=== PATIENT | male | born 1980 | race Two or more races ===

== ENCOUNTER 2017-08-21 10:20 | Inpatient (IN) | payer OTHER ==
[~2017-08-21] VITALS: Ht 162.6 cm; Wt 79.4 kg
--- NOTE | 2017-08-21 10:41 | NUR ---
nausea and vomiting x 4 days, denies diarrhea or abdominal pain chills and body aches x 2 days
[2017-08-21 11:09] LABS: APPEARANCE,URINE Slightly Cloudy (CLEAR); BILIRUBIN,URINE Negative (NEGATIVE); BLOOD, URINE Negative Ery/uL (NEGATIVE); COLOR,URINE Yellow (YELLOW); KETONES,URINE 15 (NEGATIVE); LEUKOCYTE ESTERASE ,URINE Negative (NEGATIVE); NITRITE, URINE Negative (NEGATIVE); PH,URINE 5.5 (5.0-8.0); PROTEIN,URINE 100 mg/dl (NEGATIVE); UGLUCOSE >=1000 mg/dL (NEGATIVE); UROBILINOGEN,URINE 0.2 EU/dL (0.2)
[2017-08-21] MEDS ORDERED: MORPHINE SULFATE INJ 4 MG/ML DISP.SYRIN ONE (11:14)
[2017-08-21] MEDS ORDERED: ONDANSETRON HCL/PF 4 MG/2 ML VIAL ONE (11:14)
[2017-08-21] MEDS ORDERED: ACETAMINOPHEN 325 MG TABLET ONE (11:15)
[2017-08-21 11:18] LABS: BASOPHILS # (AUTO) 0.1 /CMM (0.0-0.2); BASOPHILS % (AUTO) 0.6 % (0.0-2.0); EOSINOPHILS % (AUTO) 0.2 % (0.0-6.0); HEMATOCRIT 36 % (39-51); HEMOGLOBIN 12.3 g/dL (13.5-17.5); LYMPHOCYTES # (AUTO) 0.5 /CMM (0.8-4.8); LYMPHOCYTES % (AUTO) 3.1 % (20.0-44.0); MEAN CORPUSCULAR HGB CONC 34 g/dl (31.0-36.0); MEAN CORPUSCULAR VOLUME 85 fL (80-96); MONOCYTES # (AUTO) 0.9 /CMM (0.1-1.30); MONOCYTES % (AUTO) 5.7 % (2.0-12.0); NEUTROPHILS # (AUTO) 14.9 /CMM (1.8-8.9); NEUTROPHILS % (AUTO) 90.4 % (43.0-81.0); PLATELET COUNT (AUTO) 224 /CMM (150-450); RDW COEFFICIENT OF VARIATION 12.2 (11.5-15.0); RED BLOOD CELL COUNT(AUTO) 4.23 MIL/uL (4.5-6.0); WHITE BLOOD COUNT (AUTO) 16.4 K/uL (4.3-11.0)
[2017-08-21 11:22] LABS: BACTERIA,URINE None seen /HPF (None Seen); RBC,URINE 0-3 /HPF (0-2); SQUAMOUS EPITHELIAL CELL,UR Few /HPF (None Seen)
[2017-08-21 11:28] LABS: CALCIUM, SERUM 8.7 mg/dL (8.5-10.1); CREATININE 0.9 mg/dL (0.6-1.3); POTASSIUM 4.2 mmol/L (3.5-5.1)
--- NOTE | 2017-08-21 11:28 | NUR ---
PT TAKEN TO CT
[2017-08-21] MEDS ORDERED: IV NS 0.9% 1,000 ML BAG IV ONE (11:30)
[2017-08-21] MEDS ORDERED: ACETAMINOPHEN 325 MG TABLET PO ONE (11:30)
[2017-08-21] MEDS ORDERED: MORPHINE SULFATE INJ 2 MG/ML DISP.SYRIN IV ONE (11:30)
[2017-08-21] MEDS ORDERED: ONDANSETRON HCL/PF 4 MG/2 ML VIAL IVP ONE (11:30)
[2017-08-21 11:39] LABS: ALBUMIN 2.9 g/dL (3.4-5.0); BILIRUBIN,DIRECT 0.2 mg/dL (0.0-0.2); BILIRUBIN,TOTAL 0.8 mg/dL (0.2-1.0); TOTAL PROTEIN, SERUM 8.3 g/dL (6.4-8.2)
[2017-08-21] MEDS ORDERED: CT SWABBABLE VALVE TRANS SET 1 EA INFUS.SET MC ONE (11:46)
[2017-08-21] MEDS ORDERED: IOHEXOL-300 100 ML VIAL IV ONE (11:46)
[2017-08-21] MEDS ORDERED: IV NS 0.9% 250 ML IV ONE (11:47)
[2017-08-21] MEDS ORDERED: METF-440 PO (12:17)
[2017-08-21] MEDS ORDERED: PIPERACILLIN /TAZOBACTAM 3.375 G in IV D5W 50 ML IV ONE (13:30)
[2017-08-21] MEDS ORDERED: VANCOMYCIN 1 GM in IV D5W 250 ML IV ONE (13:30)
--- NOTE | 2017-08-21 13:45 | NUR ---
CALLED FOR FOOD TRAY
--- NOTE | 2017-08-21 14:00 | NUR ---
CORE DRILLER HELPER AT BEDSIDE
[2017-08-21 14:09] LABS: INR 0.88 (0.85-1.15)
--- NOTE | 2017-08-21 15:21 | NUR ---
GAVE REPORT TO CASH STAFFORD ADMITTING
[2017-08-21] MEDS ORDERED: ACETAMINOPHEN 325 MG TABLET PO PRN (16:00)
[2017-08-21] MEDS ORDERED: ZOLPIDEM TARTRATE 5 MG TABLET PO PRN (16:00)
[2017-08-21] MEDS ORDERED: HYDROCODONE/APAP 5/325MG 1 EACH TABLET PO PRN (16:00)
[2017-08-21] MEDS ORDERED: ONDANSETRON HCL/PF 4 MG/2 ML VIAL IVP PRN (16:00)
[2017-08-21] MEDS ORDERED: Z GUARD REMEDY 2 OZ OINT TP PRN (16:00)
[2017-08-21] MEDS ORDERED: MAGNESIUM HYDROXIDE 30 ML UDC PO PRN (16:00)
[2017-08-21] MEDS ORDERED: MAG HYDROX/AL HYDROX/SIMETH 30 ML UDC PO PRN (16:00)
[2017-08-21 16:15] VITALS: BP 116/69
[2017-08-21] MEDS ORDERED: FEE PK DOSING 1 MIN EA MC ONE (16:22)
[2017-08-21] MEDS ORDERED: DEXTROSE 50%-WATER 50 ML DISP.SYRIN IV PRN ×2 (16:30→18:00)
[2017-08-21] MEDS ORDERED: *INSULIN REGULAR(HUMULIN R)HUM 100 UNIT/ML VIAL SQ PRN (16:30)
[2017-08-21] MEDS ORDERED: INSULIN REGULAR, HUMAN 100 UNIT/ML 3 ML VIAL SQ PRN (16:30)
[2017-08-21] MEDS ORDERED: VANCOMYCIN 1 GM in IV D5W 250 ML IV SCH (16:30)
--- NOTE | 2017-08-21 16:30 | NUR ---
M/S RN - Admission Admitted pt from ER via [facility] with the diagnosis of Diabetic right foot ulcer under the care of Dr. Schwab. Pt awake, A/O x 4, denies pain, no evidence of resp. distress. Heplock on the RAC is patent, intact, with no complications. Skin is intact except for right big toe and 5th toe ulcer, right foot redness and swelling. Pt independent with ADL's and bed mobility. All belongings verified and pt refused valuables to be placed in the safe. Pt made aware that hospital will not be responsible for any missing items. Pt oriented to the unit and use of call light. All needs anticipated and met. Pt educated on the treatment plan. Admission orders noted and implemented. Will continue to monitor closely. Addendum: 08/21/17 at 1813 by CASH RICE RN Photo taken on right posterior 5th toe and big toe wound. Wound nurse triggered. Initial wound treatment done.
[2017-08-21] MEDS: ENOXAPARIN SODIUM 40 MG/0.4 ML DISP.SYRIN SQ SCH (17:09)
[2017-08-21] MEDS ORDERED: BLOOD SUGAR DIAGNOSTIC 1 EACH STRIP VI SCH (17:30)
--- NOTE | 2017-08-21 17:52 | NUR ---
M/S RN - Notes 17:32 - Accu-check done noted BG= 404 mg/dL, administered 15 units of regular insulin per sliding scale coverage. 17:36 - Relayed to Dr. Schwab critical value result of BG= 404 mg/dL. Awaiting for response. 17:45 - Dr. Schwab with order to give Lantus 15 units SQ HS, perform Accu-check Q4HR, and continue moderate sliding scale. Orders noted and carried out.
--- NOTE | 2017-08-21 18:10 | NUR ---
M/S RN - End of shift notes Patient remain afebrile, denies pain, tolerating room air, no acute distress, diabetic education given and he verbalized full understanding. Patient's insurance called and wanted pt to be transferred to [facility] ([facility] Relayed information to case management. All needs attended and met. Patient updated on treatment plan. Will continue with current medical management.
--- NOTE | 2017-08-21 19:15 | NUR ---
MS RN NOTES RECEIVED PT IN BED, AWAKE, A/O X 4, VERBALLY RESPONSIVE. NO DISTRESS, NO SOB NOTED. RESPIRATION IS EVEN AND UNLABORED. DENIES ANY PAIN OR DISCOMFORT AT THIS TIME. NO S/S OF HYPO/ HYPERGLYCEMIA NOTED. IV SITE ON RAC INTACT AND PATENT, NO S/S OF INFILTRATION NOTED. DENIES ANY PAIN OR DISCOMFORT AT THIS TIME. ALL NEEDS ATTENDED AND MET. PT COMFORTABLE VERBALIZED. CALL LIGHT WITHIN REACH. WILL CONTINUE TO MONITOR.
[2017-08-21 20:00] VITALS: BP 109/64
[2017-08-21] MEDS: PIPERACILLIN /TAZOBACTAM 3.375 G in IV D5W 50 ML IV SCH (20:17)
[2017-08-21] MEDS ORDERED: BLOOD SUGAR DIAGNOSTIC 1 EACH STRIP IN SCH (21:00)
[2017-08-21] MEDS: BLOOD SUGAR DIAGNOSTIC 1 EACH STRIP IN SCH (21:27)
[2017-08-21] MEDS: INSULIN GLARGINE, 100 UNIT/ML CARTRIDGE SQ SCH (21:41)
--- NOTE | 2017-08-21 21:43 | NUR ---
pt's bs : 68 at this time, no insulin given per insulin ss. pt with no s/s of hypoglycemia noted, remains alert and oriented x 4 . verbally responsive. pt eating jello at this time and per pt he'll drink orange juice. pt aLso has an order for lantus 15 units, held due to bs : 68 at this time. will cont to monitor
[2017-08-21] MEDS ORDERED: VANCOMYCIN 1 GM VIAL ONE (22:35)
[2017-08-21] MEDS: VANCOMYCIN 1 GM in IV NS 0.9% 250 ML IV SCH (22:57)
[2017-08-22] MEDS: BLOOD SUGAR DIAGNOSTIC 1 EACH STRIP IN SCH ×6 (00:39→23:38)
[2017-08-22] MEDS: INSULIN REGULAR, HUMAN 100 UNIT/ML 3 ML VIAL SQ PRN ×5 (00:49→23:36)
[2017-08-22] MEDS: PIPERACILLIN /TAZOBACTAM 3.375 G in IV D5W 50 ML IV SCH ×3 (02:23→13:30)
--- NOTE | 2017-08-22 06:40 | NUR ---
MS RN CLOSING NOTES PT IN BED, AWAKE, A/O X 4, VERBALLY RESPONSIVE. NO DISTRESS, NO SOB NOTED. RESPIRATION IS EVEN AND UNLABORED. DENIES ANY PAIN OR DISCOMFORT AT THIS TIME. NO S/S OF HYPO/ HYPERGLYCEMIA NOTED. IV SITE ON RAC INTACT AND PATENT, NO S/S OF INFILTRATION NOTED. DENIES ANY PAIN OR DISCOMFORT AT THIS TIME. GOOD SKIN CARE RENDERED. ALL DUE MEDS GIVEN. ALL NEEDS ATTENDED AND MET. PT COMFORTABLE VERBALIZED. CALL LIGHT WITHIN REACH. WILL ENDORSE TO NEXT SHIFT ACCORDINGLY FOR EDEL. .
[2017-08-22 06:58] LABS: BASOPHILS % (AUTO) 0.2 % (0.0-2.0); EOSINOPHILS % (AUTO) 0.5 % (0.0-6.0); HEMATOCRIT 32 % (39-51); LYMPHOCYTES # (AUTO) 1.2 /CMM (0.8-4.8); LYMPHOCYTES % (AUTO) 9.7 % (20.0-44.0); MEAN CORPUSCULAR HGB CONC 35 g/dl (31.0-36.0); MEAN CORPUSCULAR VOLUME 85 fL (80-96); MONOCYTES # (AUTO) 0.8 /CMM (0.1-1.30); MONOCYTES % (AUTO) 6.5 % (2.0-12.0); NEUTROPHILS # (AUTO) 10.2 /CMM (1.8-8.9); NEUTROPHILS % (AUTO) 83.1 % (43.0-81.0); PLATELET COUNT (AUTO) 223 /CMM (150-450); RDW COEFFICIENT OF VARIATION 12.7 (11.5-15.0); RED BLOOD CELL COUNT(AUTO) 3.73 MIL/uL (4.5-6.0); WHITE BLOOD COUNT (AUTO) 12.3 K/uL (4.3-11.0)
[2017-08-22 07:13] LABS: CALCIUM, SERUM 8.3 mg/dL (8.5-10.1); CREATININE 0.9 mg/dL (0.6-1.3); MAGNESIUM 2.1 mg/dL (1.8-2.4); PHOSPHORUS 3.2 mg/dL (2.5-4.9); POTASSIUM 3.6 mmol/L (3.5-5.1)
[2017-08-22] MEDS: VANCOMYCIN 1 GM in IV NS 0.9% 250 ML IV SCH ×3 (07:45→23:48)
[2017-08-22 08:00] VITALS: BP 109/64
--- NOTE | 2017-08-22 08:45 | NUR ---
M/S RN - AM assessment Patient awake, A/O x 4, afebrile, denies pain, no evidence of resp. distress. Heplock on the RAC is patent, intact, with no complications. Right foot still noted with swelling and redness, elevated on pillows, right 5th metatarsal and big toe open wound with purulent drainage. DONG Kim (Podiatry) at bedside for consult. Right foot wound specimen sent to lab for culture. Patient currently on Vanco and Zosyn for right foot wound infection. Blood sugar more controlled with current insulin coverage. All needs attended and met. Will continue with current plan of care.
[2017-08-22] MEDS ORDERED: LIDOCAINE 1% INJ 50 ML MDV IJ ONE (10:00)
--- NOTE | 2017-08-22 10:30 | NUR ---
M/S RN - Bedside wound debridement Patient s/p bedside right foot wound debridement performed by Dr. You, procedure tolerated well. Per Md, wound treatment to be done on the right foot q8h. All needs attended and met. Will continue to monitor closely. Possible transfer to [facility] today per pt's insurance.
--- NOTE | 2017-08-22 15:00 | NUR ---
M/S RN - Evan Noted Zosyn in D5W 100 ml instead of 50 ml, notified pharmacy that patient is diabetic and had episodes of uncontrolled blood sugar level. Per pharmacy, they will change it.
[2017-08-22] MEDS ORDERED: PIPERACILLIN /TAZOBACTAM 3.375 G in IV D5W 100 ML IV SCH (15:45)
[2017-08-22 15:47] VITALS: BP 138/75
--- NOTE | 2017-08-22 19:15 | NUR ---
MS RN NOTES RECEIVED PT IN BED, RESTING COMFORTABLY AT THIS TIME,AROUSES EASILY. A/O X 4, VERBALLY RESPONSIVE. NO DISTRESS, NO SOB NOTED. RESPIRATION IS EVEN AND UNLABORED. DENIES ANY PAIN OR DISCOMFORT AT THIS TIME. NO S/S OF HYPO/ HYPERGLYCEMIA NOTED. IV SITE ON RAC INTACT AND PATENT, NO S/S OF INFILTRATION NOTED. DENIES ANY PAIN OR DISCOMFORT AT THIS TIME. DRESSING ON RIGHT FOOT CLEAN AND INTACT , NO S/S OF BLEEDING NOTED. ALL NEEDS ATTENDED AND MET. PT COMFORTABLE VERBALIZED. CALL LIGHT WITHIN REACH. WILL CONTINUE TO MONITOR.
--- NOTE | 2017-08-22 19:15 | NUR ---
M/S RN - End of shift notes No new events seen. Patient endorsed to night RN accordingly.
[2017-08-22 20:00] VITALS: BP 112/62
[2017-08-22] MEDS: PIPERACILLIN /TAZOBACTAM 3.375 G in IV D5W 100 ML IV SCH (20:34)
[2017-08-22] MEDS: INSULIN GLARGINE, 100 UNIT/ML CARTRIDGE SQ SCH (23:37)
[2017-08-22] MEDS: ENOXAPARIN SODIUM 40 MG/0.4 ML DISP.SYRIN SQ SCH (23:38)
[2017-08-23] MEDS: PIPERACILLIN /TAZOBACTAM 3.375 G in IV D5W 100 ML IV SCH ×4 (02:01→19:55)
[2017-08-23] MEDS: BLOOD SUGAR DIAGNOSTIC 1 EACH STRIP IN SCH ×6 (02:46→20:34)
[2017-08-23] MEDS: INSULIN REGULAR, HUMAN 100 UNIT/ML 3 ML VIAL SQ PRN ×5 (02:48→21:39)
--- NOTE | 2017-08-23 06:50 | NUR ---
MS RN NOTES PT IN BED, AWAKE, A/O X 4, VERBALLY RESPONSIVE. NO DISTRESS, NO SOB NOTED. RESPIRATION IS EVEN AND UNLABORED. DENIES ANY PAIN OR DISCOMFORT AT THIS TIME. NO S/S OF HYPO/ HYPERGLYCEMIA NOTED. IV SITE ON RAC INTACT AND PATENT, NO S/S OF INFILTRATION NOTED. DENIES ANY PAIN OR DISCOMFORT AT THIS TIME. DRESSING ON RIGHT FOOT CHANGED ORDERED. ALL DUE MEDS GIVEN. ALL NEEDS ATTENDED AND MET. PT COMFORTABLE VERBALIZED. CALL LIGHT WITHIN REACH. WILL ENDORSE TO NEXT SHIFT FOR EDEL. .
[2017-08-23] MEDS: VANCOMYCIN 1 GM in IV NS 0.9% 250 ML IV SCH ×3 (07:27→22:09)
--- NOTE | 2017-08-23 07:30 | NUR ---
RN MS NOTES PT IN BED, AWAKE, ALERT AND ORIENTED, DENIES PAIN OR ANY DISCOMFORT, BREATHING PATTERN NORMAL, CALL LIGHT WITHIN REACH, IV ATB INFUSING WELL, KEPT COMFORTABLE, NEEDS ATTENDED.
[2017-08-23 08:00] VITALS: BP 118/67
[2017-08-23 09:50] LABS: CALCIUM, SERUM 8.5 mg/dL (8.5-10.1); CREATININE 1.1 mg/dL (0.6-1.3); POTASSIUM 3.9 mmol/L (3.5-5.1)
--- NOTE | 2017-08-23 12:36 | NUR ---
RN MS NOTES PT IN BED, RESTING, DENIES PAIN, NOT IN DISTRESS, CALL LIGHT WITHIN REACH, ABLE TO USE URINAL, KEPT COMFORTABLE.
[2017-08-23 15:47] VITALS: BP 118/73
[2017-08-23] MEDS: LACTOBACILLUS RHAMNOSUS GG 1 EACH CAP.SPRINK PO SCH (17:23)
--- NOTE | 2017-08-23 19:00 | NUR ---
RN MS NOTES PT IN BED, RESTING, NO COMPLAINT OF PAIN, NOT IN DISTRESS, CALL LIGHT WITHIN REACH, SEEN BY DR. STAFFORD TODAY, PM MEDS GIVEN, BLOOD SUGAR CHECKED, INSULIN GIVEN PER SLIDING SCALE ORDERED, ALL NEEDS ATTENDED.
[2017-08-23 20:00] VITALS: BP 123/71
[2017-08-23] MEDS: ENOXAPARIN SODIUM 40 MG/0.4 ML DISP.SYRIN SQ SCH (20:41)
--- NOTE | 2017-08-23 21:20 | NUR ---
PATIENT FEELING NAUSEATED, NO VOMITING NOTED, ONDANSETRON 4 MG IV ADMINISTERED.
[2017-08-23] MEDS: INSULIN GLARGINE, 100 UNIT/ML CARTRIDGE SQ SCH (21:26)
--- NOTE | 2017-08-23 22:06 | NUR ---
2100: Accucheck 219 mg/dl, 6 units Regular insulin sc administered.
[2017-08-24] MEDS: BLOOD SUGAR DIAGNOSTIC 1 EACH STRIP IN SCH ×6 (01:20→21:45)
--- NOTE | 2017-08-24 01:20 | NUR ---
0100: ACCJUCHECK 124 MG/DL, NO INSULIN SS DUE AT THIS TIME.
[2017-08-24] MEDS: PIPERACILLIN /TAZOBACTAM 3.375 G in IV D5W 100 ML IV SCH ×3 (02:37→13:51)
[2017-08-24] MEDS: ONDANSETRON HCL/PF 4 MG/2 ML VIAL IV PRN ×2 (02:38→09:49)
--- NOTE | 2017-08-24 05:28 | NUR ---
ACCUCHECK NOW 207 MG/DL, PATIENT HAD BEEN VOMITING, UNABLE TO TAKE ANYTHING, INSULIN SLIDING SCALE NOT ADMINISTERED FOR NOW. WILL RECHECK BLOOD SUGAR LATER.
[2017-08-24] MEDS: VANCOMYCIN 1 GM in IV NS 0.9% 250 ML IV SCH ×2 (06:05→15:00)
[2017-08-24 06:06] LABS: BASOPHILS % (AUTO) 0.2 % (0.0-2.0); EOSINOPHILS % (AUTO) 1.9 % (0.0-6.0); HEMATOCRIT 36 % (39-51); HEMOGLOBIN 12.3 g/dL (13.5-17.5); LYMPHOCYTES # (AUTO) 1.3 /CMM (0.8-4.8); LYMPHOCYTES % (AUTO) 13.6 % (20.0-44.0); MEAN CORPUSCULAR HGB CONC 34 g/dl (31.0-36.0); MEAN CORPUSCULAR VOLUME 86 fL (80-96); MONOCYTES # (AUTO) 0.6 /CMM (0.1-1.30); MONOCYTES % (AUTO) 5.9 % (2.0-12.0); NEUTROPHILS # (AUTO) 7.4 /CMM (1.8-8.9); NEUTROPHILS % (AUTO) 78.4 % (43.0-81.0); PLATELET COUNT (AUTO) 277 /CMM (150-450); RDW COEFFICIENT OF VARIATION 13.1 (11.5-15.0); WHITE BLOOD COUNT (AUTO) 9.4 K/uL (4.3-11.0)
[2017-08-24 06:28] LABS: CALCIUM, SERUM 8.9 mg/dL (8.5-10.1); CREATININE 1.2 mg/dL (0.6-1.3); MAGNESIUM 2.1 mg/dL (1.8-2.4); PHOSPHORUS 4.6 mg/dL (2.5-4.9); POTASSIUM 4.1 mmol/L (3.5-5.1)
[2017-08-24 08:00] VITALS: BP 137/71
[2017-08-24] MEDS: LACTOBACILLUS RHAMNOSUS GG 1 EACH CAP.SPRINK PO SCH ×2 (08:41→17:36)
--- NOTE | 2017-08-24 08:42 | NUR ---
MS RN NOTES RECEIVED PT IN BED, A/O X 4, VERBALLY RESPONSIVE. RESPIRATION IS EVEN AND UNLABORED, ON ROOM AIR. DENIES ANY PAIN OR DISCOMFORT AT THIS TIME. IV SITE TO RAC INTACT AND PATENT, NO S/S OF INFILTRATION NOTED. DRESSING ON RIGHT FOOT INTACT DRESSED BY PREVIOUS SHIFT. NO S/S OF BLEEDING NOTED. SAFETY MEASURES RENDERED, CALL LIGHT WITHIN REACH. WILL CONTINUE TO MONITOR.
[2017-08-24] MEDS: INSULIN REGULAR, HUMAN 100 UNIT/ML 3 ML VIAL SQ PRN ×4 (09:49→21:49)
--- NOTE | 2017-08-24 11:40 | NUR ---
MS/RN NOTES PATIENT NAUSEATED, VOMITING CLEAR FLUIDS, ONDANSETRON 4 MG IV ADMINISTERED.WILL RE-ASSESS AT SCHEDULED TIME FOR EFFECTIVENESS.
--- NOTE | 2017-08-24 15:56 | NUR ---
MS/RN NOTES 1500 VANCOMYCIN HELD DUE TO VANCO TROUGH 27. PHARMACY AWARE WILL ADJUST DOSE PER PROTOCOL.
[2017-08-24 16:00] VITALS: BP 130/70
--- NOTE | 2017-08-24 16:13 | NUR ---
MS/RN NOTES WOUND TO THE RIGHT LOWER FOOT DRESSED ORDERED, PATIENT TOLERATED WELL. NO S/S OF INFECTION NOTED. WILL CONTINUE TO MONITOR.
--- NOTE | 2017-08-24 17:00 | NUR ---
MS BS NOTE PATIENTS 1700 BS CHECK 141MG/DL, COVERED WITH 2 UNITS OF INSULIN PER PROTOCOL
[2017-08-24] MEDS ORDERED: LACTOBACILLUS RHAMNOSUS GG 1 EACH CAP.SPRINK PO SCH (18:00)
[2017-08-24] MEDS: LEVOFLOXACIN (500MG) 500 MG TABLET PO SCH (18:23)
--- NOTE | 2017-08-24 18:43 | NUR ---
MS/RN NOTES PATIENT RESTING IN BED, ONGOING EMESIS CLEAR FLUIDS, NO SIGNIFICANT CHANGES IN GENERAL CONDITION, VITAL SIGNS REMAIN STABLE, AFEBRILE. ALL DUE MEDICATIONS GIVEN , ALL NEEDS MET AND ATTENDED. GLYCEMIC CONTROL, WOUND CARE DONE ORDERED. IV ANTIBIOTICS INFUSING ORDERED. PATIENT SLEEPING THROUGHOUT SHIFT HOWEVER AROUSABLE TO STIMULI, SAFETY MEASURES RENDERED, CALL LIGHT PLACED WITHIN EASY REACH. WILL ENDORSE CARE TO LICENSED PSYCHIATRIC TECHNICIAN FOR EDEL
--- NOTE | 2017-08-24 19:10 | NUR ---
MS/RN OPENING NOTES PT ASLEEP, AROUSABLE TO NAME/TOUCH. ON ROOM AIR, BREATHING EVEN AND UNLABORED. NO SOB. NO COMPLAINTS OF PAIN. IV TO RAC LEAKING. WILL REINSERT. BED IN LOW/LOCKED POSITION WITH CALL LIGHT IN REACH. SIDE RAILS UPX2. WILL CONTINUE TO MONITOR
[2017-08-24 20:00] VITALS: BP 131/77
[2017-08-24] MEDS: METOCLOPRAMIDE HCL 10 MG/2 ML VIAL IV SCH (20:36)
--- NOTE | 2017-08-24 21:01 | NUR ---
MS/RN NOTES IV TO RIGHT AC LEAKING. INSERTED NEW IV TO RIGHT HAND #22, GOOD BLOOD RETURN. FLUSHES WELL. ADMINISTERED SCHEDULED 1800 REGLAN IV LATE. PER DAY SHIFT RN, PHARMACY LATE TO BRING TO UNIT.
[2017-08-24] MEDS: SULFAMETH/TRIMETH 800/160 MG 1 UDTAB TABLET PO SCH (21:45)
[2017-08-24] MEDS: INSULIN GLARGINE, 100 UNIT/ML CARTRIDGE SQ SCH (21:49)
[2017-08-24] MEDS: ENOXAPARIN SODIUM 40 MG/0.4 ML DISP.SYRIN SQ SCH (21:50)
[2017-08-24] MEDS ORDERED: VANCOMYCIN 1 GM in IV NS 0.9% 250 ML IV SCH (23:00)
[2017-08-25] MEDS: METOCLOPRAMIDE HCL 10 MG/2 ML VIAL IV SCH ×5 (01:36→23:11)
[2017-08-25] MEDS: BLOOD SUGAR DIAGNOSTIC 1 EACH STRIP IN SCH ×6 (01:36→21:30)
[2017-08-25] MEDS: INSULIN REGULAR, HUMAN 100 UNIT/ML 3 ML VIAL SQ PRN ×4 (01:41→21:36)
--- NOTE | 2017-08-25 01:41 | NUR ---
MS/RN NOTES PT FEELING NAUSEATED, ADMINISTERED SCHEDULED REGLAN ORDERED. SNACKS ENCOURAGED TOLERATED, PT ABLE TO CONSUME 1.5 JUICE BOXES SINCE START OF SHIFT, HOWEVER PT REFUSING TO EAT SNACKS NOW. WITH POOR APPETITE. BLOOD GMWWX=[id number]. HELD INSULIN SLIDING SCALE. WILL RECHECK AT 0500.
[2017-08-25 06:55] LABS: CALCIUM, SERUM 8.8 mg/dL (8.5-10.1); CREATININE 1.3 mg/dL (0.6-1.3); POTASSIUM 3.9 mmol/L (3.5-5.1)
--- NOTE | 2017-08-25 07:20 | NUR ---
MS/RN CLOSING NOTES PT ASLEEP, AROUSABLE TO NAME. ON ROOM AIR, BREATHING EVEN AND UNLABORED. NO SOB. NO COMPLAINTS OF PAIN. WITH NO/OFF NAUSEA/VOMITING. TOTAL OF 450ML CLEAR EMESIS NOTED. NO COMPLAINTS OF NAUSEA AT THIS TIME. IV TO RIGHT HAND PATENT AND INTACT. WOUND CARE PROVIDED ORDERED. KEPT PT COMFORTABLE POSSIBLE DURING SHIFT. ALL NEEDS MET. BED IN LOW/LOCKED POSITION WITH CALL LIGHT IN REACH. SIDE RAILS UPX2. ENDORSED TO DAY SHIFT RN EDEL.
--- NOTE | 2017-08-25 07:51 | NUR ---
WOUND CARE CONSULT WOUND CARE RECEIVED CONSULT FOR RIGHT FOOT OPEN WOUND. WOUND CARE WILL DEFER CONSULT AND ALL TREATMENT PLANS TO SURGICAL TEAM THEY ARE CURRENTLY FOLLOWING. PATIENT WITH DAVID AT 22.
--- NOTE | 2017-08-25 07:52 | NUR ---
MS RN: INITIAL NOTE RECEIVED PT A/OX4. NO DISTRESS NOTED. NO SOB NOTED. ON ROOM AIR SATING AT 99%. MS. BRP AND USES URINAL. NO EPISODES OF N/V NOTED. NO PAIN NOTED. ON CCHO DIET. R HAND #22 SL. SITE CLEAR AND PATENT. NO REDNESS OR BLEEDING NOTED. RESTING COMFORTABLY IN BED. CALL LIGHT WITHIN REACH.
[2017-08-25 08:19] VITALS: BP 125/81
[2017-08-25] MEDS: SULFAMETH/TRIMETH 800/160 MG 1 UDTAB TABLET PO SCH ×2 (08:45→21:30)
[2017-08-25] MEDS: LACTOBACILLUS RHAMNOSUS GG 1 EACH CAP.SPRINK PO SCH ×2 (08:45→17:05)
[2017-08-25] MEDS: METFORMIN 500 MG TABLET PO SCH ×2 (08:45→17:04)
[2017-08-25] MEDS ORDERED: INSULIN GLARGINE, 100 UNIT/ML CARTRIDGE SQ SCH (09:00)
[2017-08-25 16:23] VITALS: BP 115/70
--- NOTE | 2017-08-25 16:56 | NUR ---
PER MD STAFFORD TO PLACE PT ON CLEAR LIQUID DIET.
[2017-08-25] MEDS: LEVOFLOXACIN (500MG) 500 MG TABLET PO SCH (17:05)
--- NOTE | 2017-08-25 18:43 | NUR ---
MS RN: CLOSING NOTE PT TOOK ALL MEDICATIONS ON TIME. NO ADVERSE REACTIONS. NO SOB NOTED. NO PAIN NOTED. VOMITING AND DRY HEAVES PERSISTING. VOMITED 3X DAY. MD STAFFORD NOTIFIED. CHANGES DIET TO CLEAR. CONTINENT. USES URINAL. WOUND CARE DONE ORDERED. ON CLEAR LIQUID DIET. R HAND #22 SL. SITE CLEAR AND PATENT. INSULIN GIVEN PER SLIDING SCALE. RESTING COMFORTABLY IN BED. CALL LIGHT WITHIN REACH.
--- NOTE | 2017-08-25 19:20 | NUR ---
MS/RN OPENING NOTES PT RECEIVED RESTING IN BED. AROUSABLE TO NAME. ON ROOM AIR, BREATHING EVEN AND UNLABORED. DENIES SOB OR PAIN AT THIS TIME. NO C/O OF NAUSEA OR VOMITING. IV TO RIGHT HAND PATENT AND INTACT. BED IN LOW/LOCKED POSITION WITH CALL LIGHT IN REACH. SIDE RAILS UPX2. WILL CONTINUE TO MONITOR
[2017-08-25 20:00] VITALS: BP 139/74
[2017-08-25] MEDS: INSULIN GLARGINE, 100 UNIT/ML CARTRIDGE SQ SCH (21:35)
[2017-08-25] MEDS: ENOXAPARIN SODIUM 40 MG/0.4 ML DISP.SYRIN SQ SCH (21:36)
[2017-08-26] MEDS: BLOOD SUGAR DIAGNOSTIC 1 EACH STRIP IN SCH ×6 (01:53→21:53)
[2017-08-26] MEDS: INSULIN REGULAR, HUMAN 100 UNIT/ML 3 ML VIAL SQ PRN ×3 (01:56→13:22)
[2017-08-26] MEDS: METOCLOPRAMIDE HCL 10 MG/2 ML VIAL IV SCH ×2 (05:37→13:22)
--- NOTE | 2017-08-26 06:38 | NUR ---
MS/RN CLOSING NOTES PT ASLEEP, RESTING COMFORTABLY IN BED. ON ROOM AIR, BREATHING EVEN AND UNLABORED. DENIES SOB AND ABDOMINAL PAIN. PT STILL WITH NAUSEA/VOMITING/DRY HEAVING. PT MAINTAINED ON CLEAR LIQUID DIET HOWEVER PT WITH POOR APPETITE, UNABLE TO TOLERATE PO INTAKE. INSULIN COVERAGE PROVIDED WITH Q4H ACCUCHECKS. KEPT PT COMFORTABLE POSSIBLE DURING SHIFT. ALL NEEDS MET. BED IN LOW/LOCKED POSITION WITH CALL LIGHT IN REACH. SIDE RAILS UPX2. WILL ENDORSE TO DAY SHIFT RN EDEL.
[2017-08-26 06:43] LABS: BASOPHILS % (AUTO) 0.2 % (0.0-2.0); HEMATOCRIT 37 % (39-51); HEMOGLOBIN 12.8 g/dL (13.5-17.5); LYMPHOCYTES # (AUTO) 1.1 /CMM (0.8-4.8); LYMPHOCYTES % (AUTO) 10.6 % (20.0-44.0); MEAN CORPUSCULAR HGB CONC 34 g/dl (31.0-36.0); MEAN CORPUSCULAR VOLUME 86 fL (80-96); MONOCYTES # (AUTO) 0.6 /CMM (0.1-1.30); MONOCYTES % (AUTO) 5.2 % (2.0-12.0); NEUTROPHILS # (AUTO) 8.9 /CMM (1.8-8.9); PLATELET COUNT (AUTO) 347 /CMM (150-450); RDW COEFFICIENT OF VARIATION 12.4 (11.5-15.0); RED BLOOD CELL COUNT(AUTO) 4.35 MIL/uL (4.5-6.0); WHITE BLOOD COUNT (AUTO) 10.6 K/uL (4.3-11.0)
[2017-08-26 07:04] LABS: CALCIUM, SERUM 9.2 mg/dL (8.5-10.1); CREATININE 1.5 mg/dL (0.6-1.3); MAGNESIUM 2.2 mg/dL (1.8-2.4); PHOSPHORUS 3.7 mg/dL (2.5-4.9); POTASSIUM 4.1 mmol/L (3.5-5.1)
--- NOTE | 2017-08-26 07:15 | NUR ---
RN NOTES: PATIENT RESTING IN BED. NONLABORED BREATHING NOTED ON ROOM AIR. PATIENT AOX4. DENIES PAIN AT THE MOMENT. NO VOMTING AT THE MOMENT. BED IN LOWEST LOCKED POSITION.CALL LIGHT WITHIN REACH. WILL CONTINUE TO MONITOR
[2017-08-26 08:00] VITALS: BP 123/76
[2017-08-26] MEDS: METFORMIN 500 MG TABLET PO SCH ×2 (08:38→16:57)
[2017-08-26] MEDS: INSULIN GLARGINE, 100 UNIT/ML CARTRIDGE SQ SCH ×2 (08:38→22:12)
[2017-08-26] MEDS: LACTOBACILLUS RHAMNOSUS GG 1 EACH CAP.SPRINK PO SCH ×2 (08:38→16:57)
--- NOTE | 2017-08-26 08:39 | NUR ---
RN NOTES: PATIENT REFUSING GLUCOPHAGE AND LACTOBACILLUS, STATING THAT HE DOES "NOT FEEL WELL AFTER TAKING PILLS" BENEFITS AND RISKS EXPLAINED AT LENGTH. INSULIN HELD, BLOOD SUGAR NOTED AT 145. PATIENT REFUSING TO EAT BREAKFAST STATING THAT IT MAKES HIM VOMIT. OFFERED ZOFRAN TO PATIENT, HOWEVER, HE REFUSED. WILL CONTINUE TO MONITOR PATIENT FOR VOMITING
[2017-08-26] MEDS: SULFAMETH/TRIMETH 800/160 MG 1 UDTAB TABLET PO SCH (09:58)
--- NOTE | 2017-08-26 12:00 | NUR ---
RN NOTES: SPOKE TO MARTÍN FROM PHARMACY. MEDICATION UNAVAILABLE AT THE MOMENT. AWAITING DELIVERY
--- NOTE | 2017-08-26 15:11 | NUR ---
RN NOTES: SARI CABRALES, DONG, ORDERS
--- NOTE | 2017-08-26 15:15 | NUR ---
RN NOTES: SPOKE TO RADIOLOGY- UNABLE TO DO KUB NOW. PER THEIR INSTRUCTIONS, DONT KEEP PATIENT NPO FOR NOW
[2017-08-26 16:00] VITALS: BP 112/70
[2017-08-26] MEDS: PANTOPRAZOLE 40 MG VIAL IV SCH (16:44)
[2017-08-26] MEDS: ONDANSETRON 4 MG TAB.RAPDIS PO PRN (16:44)
[2017-08-26] MEDS: IV NS 0.9% 1,000 ML IV PRN (16:50)
--- NOTE | 2017-08-26 16:57 | NUR ---
RN NOTES: PATIENT REFUSING INSULIN. BLOOD SUGAR 186. STATING HE DOESNT WANT TO EAT DUE TO VOMITING. ZOFRAN SUBLINGUAL ADMINISTERED. PATIENT REFUSING GLUCOPHAGE AND LACTOBASCILUUS WELL. BENEFITS AND RISKS EXPLAINED WELL
[2017-08-26] MEDS ORDERED: METOCLOPRAMIDE HCL 10 MG/2 ML VIAL IV PRN (18:00)
[2017-08-26] MEDS: LEVOFLOXACIN (500MG) 500 MG TABLET PO SCH (18:47)
--- NOTE | 2017-08-26 19:30 | NUR ---
RN NOTES: PATIENT RESTING IN BED. NONLABORED BREATHING NOTED ON ROOM AIR. PATIENT AOX4. DENIES PAIN AT THE MOMENT. NO VOMITING AT THE MOMENT. BED IN LOWEST LOCKED POSITION.CALL LIGHT WITHIN REACH. WILL CONTINUE TO MONITOR
--- NOTE | 2017-08-26 19:30 | NUR ---
RN NOTES: PATIENT RESTING IN BED. NONLABORED BREATHING NOTED ON ROOM AIR. NO SIGNS OF DISTRESS NOTED. PATIENT AOX4. IV SITE ON RIGHT AC PATENT AND INTACT. BED IN LOWEST LOCKED POSITION. CALL LIGHT WITHIN REACH. PATIENT STABLE THROUGHOUT SHIFT. X6 VOMITING NOTED, NO SIGNS OF BLEEDING NOTED DURING SHIFT. PATIENT REFUSING WOUND CARE- DONE IN AM. IV FLUIDS RUNNING PER ORDERS. ENDORSED TO NEXT SHIFT
[2017-08-26] MEDS ORDERED: FEE PK DOSING 1 MIN EA MC ONE (19:57)
[2017-08-26 20:00] VITALS: BP 140/88
--- NOTE | 2017-08-26 21:00 | NUR ---
ms rn note Blood sugar 193. Lantus administered as ordered. Held sliding scale at this time. Patient not eating.
[2017-08-26] MEDS: ENOXAPARIN SODIUM 40 MG/0.4 ML DISP.SYRIN SQ SCH (21:55)
[2017-08-26] MEDS: VANCOMYCIN 1 GM in IV NS 0.9% 250 ML IV SCH (21:55)
--- NOTE | 2017-08-27 02:18 | NUR ---
MS RN NOTE PATIENT CONTINUES TO HAVE PERIODS OF RETCHING. NO EMESIS PRESENT. ZOFRAN OFFERED. PATIENT REFUSED. WILL TRY AGAIN LATER.
--- NOTE | 2017-08-27 02:30 | NUR ---
ms rn note blood sugar 246. 6 units of insulin given per sliding scale.
[2017-08-27] MEDS: BLOOD SUGAR DIAGNOSTIC 1 EACH STRIP IN SCH ×6 (03:04→20:56)
[2017-08-27] MEDS: INSULIN REGULAR, HUMAN 100 UNIT/ML 3 ML VIAL SQ PRN ×6 (03:06→21:08)
[2017-08-27] MEDS: ONDANSETRON HCL/PF 4 MG/2 ML VIAL IV PRN ×4 (03:07→23:20)
--- NOTE | 2017-08-27 03:10 | NUR ---
ms rn note Patient continues to have episodes of retching. Zofran administered as ordered.
[2017-08-27 06:39] LABS: BASOPHILS % (AUTO) 0.1 % (0.0-2.0); HEMATOCRIT 37 % (39-51); HEMOGLOBIN 12.7 g/dL (13.5-17.5); LYMPHOCYTES # (AUTO) 1.4 /CMM (0.8-4.8); LYMPHOCYTES % (AUTO) 10.9 % (20.0-44.0); MEAN CORPUSCULAR HGB CONC 34 g/dl (31.0-36.0); MEAN CORPUSCULAR VOLUME 86 fL (80-96); MONOCYTES # (AUTO) 0.8 /CMM (0.1-1.30); MONOCYTES % (AUTO) 6.4 % (2.0-12.0); NEUTROPHILS # (AUTO) 10.8 /CMM (1.8-8.9); NEUTROPHILS % (AUTO) 82.6 % (43.0-81.0); PLATELET COUNT (AUTO) 388 /CMM (150-450); RDW COEFFICIENT OF VARIATION 13.2 (11.5-15.0); RED BLOOD CELL COUNT(AUTO) 4.36 MIL/uL (4.5-6.0); WHITE BLOOD COUNT (AUTO) 13.1 K/uL (4.3-11.0)
[2017-08-27 06:47] LABS: ALBUMIN 3.2 g/dL (3.4-5.0); BILIRUBIN,DIRECT 0.1 mg/dL (0.0-0.2); BILIRUBIN,TOTAL 0.4 mg/dL (0.2-1.0); CALCIUM, SERUM 9.2 mg/dL (8.5-10.1); CREATININE 1.6 mg/dL (0.6-1.3); POTASSIUM 3.4 mmol/L (3.5-5.1)
--- NOTE | 2017-08-27 07:30 | NUR ---
RN MS NOTES PT IN BED, ASLEEP, EASY TO AROUSE, ALERT AND ORIENTED, DENIES PAIN, NOT IN DISTRESS, IV FLUIDS INFUSING WELL, CALL LIGHT WITHIN REACH, ABLE TO AMBULATE TO THE BATHROOM WITH STEADY GAIT, NEEDS ATTENDED.
[2017-08-27 08:00] VITALS: BP_SYST 145; BP_SYST 155; BP_DIAS 88; BP_DIAS 95
[2017-08-27] MEDS: LACTOBACILLUS RHAMNOSUS GG 1 EACH CAP.SPRINK PO SCH ×2 (08:41→16:34)
[2017-08-27] MEDS: VANCOMYCIN 1 GM in IV NS 0.9% 250 ML IV SCH ×2 (08:41→20:55)
[2017-08-27] MEDS: METFORMIN 500 MG TABLET PO SCH ×2 (08:41→16:34)
[2017-08-27] MEDS: ONDANSETRON 4 MG TAB.RAPDIS PO PRN (08:48)
[2017-08-27] MEDS: INSULIN GLARGINE, 100 UNIT/ML CARTRIDGE SQ SCH ×2 (09:00→22:00)
[2017-08-27] MEDS ORDERED: POTASSIUM CHLORIDE 20 MEQ TAB.PRT.SR PO SCH (11:00)
[2017-08-27] MEDS ORDERED: POTASSIUM CHLORIDE 10 MEQ/50 ML PREMIXED IVPB FOR PERIPHERAL LINE IV ONE (11:00)
[2017-08-27] MEDS ORDERED: IV NS 0.9% 500 ML IV ONE (11:00)
--- NOTE | 2017-08-27 11:00 | NUR ---
RN MS NOTES PT IN BED, AWAKE, WITH EPISODES OF NAUSEA AND VOMITING, COLORLESS TO LIGHT BROWN, MODERATE AMOUNT, ANNABELLA CONTRACT ANALYST INFORMED, ORDERS NOTED AND CARRIED OUT, PO KDUR NOT GIVEN, MED CHANGED TO IV.
[2017-08-27] MEDS ORDERED: Potassium Chloride 10 MEQ in IV D5W 50 ML IV SCH (12:00)
[2017-08-27 16:00] VITALS: BP 143/82
[2017-08-27] MEDS: PANTOPRAZOLE 40 MG VIAL IV SCH (16:33)
[2017-08-27] MEDS: LEVOFLOXACIN (500MG) 500 MG TABLET PO SCH (17:00)
[2017-08-27] MEDS: METOCLOPRAMIDE HCL 10 MG/2 ML VIAL IV SCH (17:30)
--- NOTE | 2017-08-27 18:14 | NUR ---
RN MS NOTES PT IN BED, AWAKE, ALERT AND ORIENTED, STILL WITH EPISODES OF NAUSEA AND VOMITING, N/V MEDS GIVEN ORDERED, IV FLUIDS INFUSING WELL, CALL LIGHT WITHIN REACH, WOUND TREATMENTS DONE, DRESSING CHANGE DONE ORDERED, PLAN OF CARE DISCUSSED WITH PT, VERBALIZED UNDERSTANDING.
--- NOTE | 2017-08-27 19:00 | NUR ---
CHRIS MS NOTES PT SEEN BY DONG DAVIDSON FOR GI CONSULT, PLAN FOR EGD TOMORROW, PT INFORMED. Addendum: 08/27/17 at 1902 by JOEL LOPEZ RN INCORRECT DOCUMENTATION
--- NOTE | 2017-08-27 19:25 | NUR ---
MS RN NOTES RECEIVED PT IN BED, AWAKE, A/0 X 4. VERBALLY RESPONSIVE. FAMILY MEMBERS AT BED SIDE. NO DISTRESS, NOR SOB NOTED AT THIS TIME. ABDOMEN IS SOFT AND NON DISTENDED. PT WITH ON AND OFF EPISODE OF VOMITING. PT ON ZOFRAN PRN AND REGLAN IVP, WILL GIVE ORDERED. IV SITE ON LEFT HAND INTACT AND PATENT, IVF INFUSING WELL. NO S/S OF HYPO/ HYPERGLYCEMIA NOTED. PT FOR EGD IN AM , ON NPO AFTER MIDNIGHT, DISCUSSED WITH THE PT , PT VERBALIZED UNDERSTANDING. ALL NEEDS ATTENDED AND MET. KEPT COMFORTABLE. SAFETY PRECAUTIONS OBSERVED. CALL LIGHT WITHIN REACH. WILL CONTINUE TO MONITOR.
--- NOTE | 2017-08-27 19:30 | NUR ---
RN MS NOTES PT SEEN BY STUART UMANA FOR GI CONSULT, PLAN FOR EGD TOMORROW, PT INFORMED, EXPLAINED PROCEDURE TO PT, VERBALIZED UNDERSTANDING, PT SIGNED CONSENTS.
[2017-08-27 20:00] VITALS: BP_SYST 120; BP_SYST 147; BP_DIAS 73; BP_DIAS 78
[2017-08-27] MEDS: ENOXAPARIN SODIUM 40 MG/0.4 ML DISP.SYRIN SQ SCH (20:59)
--- NOTE | 2017-08-27 21:55 | NUR ---
KELECHI SQ HELD, PT FOR EGD IN AM. WILL MONITOR PT CLOSELY.
[2017-08-28] MEDS: BLOOD SUGAR DIAGNOSTIC 1 EACH STRIP IN SCH ×6 (01:08→21:58)
[2017-08-28] MEDS: METOCLOPRAMIDE HCL 10 MG/2 ML VIAL IV SCH ×3 (01:08→16:06)
--- NOTE | 2017-08-28 01:08 | NUR ---
PT'S BS: 160 AT THIS TIME, NO INSULIN SS GIVEN , PT ON NPO STARTING MIDNIGHT. PT REMAINS A/O X 4. VERBALLY RESPONSIVE. WILL MONITOR PT CLOSELY. .
--- NOTE | 2017-08-28 01:08 | NUR ---
PT'S BS: 160 AT THIS TIME, NO INSULIN SS GIVEN , PT ON NPO STARTING MIDNIGHT. NO S/S OF HYPO/ HYPERGLYCEMIA NOTED. PT REMAINS A/O X 4. VERBALLY RESPONSIVE. WILL MONITOR PT CLOSELY.
--- NOTE | 2017-08-28 05:13 | NUR ---
BS: 206 AT THIS TIME, NO INSULIN SS GIVEN , PT ON NPO STARTING MIDNIGHT. NO S/S OF HYPO/ HYPERGLYCEMIA NOTED. PT REMAINS A/O X 4. VERBALLY RESPONSIVE. WILL MONITOR PT CLOSELY AND WILL ENDORSE TO NEXT SHIFT FOR EDEL.
[2017-08-28] MEDS: ONDANSETRON HCL/PF 4 MG/2 ML VIAL IV PRN ×2 (05:30→12:45)
[2017-08-28] MEDS: IV NS 0.9% 1,000 ML IV PRN (06:21)
[2017-08-28 06:24] LABS: BASOPHILS % (AUTO) 0.2 % (0.0-2.0); HEMATOCRIT 31 % (39-51); HEMOGLOBIN 10.8 g/dL (13.5-17.5); LYMPHOCYTES # (AUTO) 1.3 /CMM (0.8-4.8); LYMPHOCYTES % (AUTO) 12.4 % (20.0-44.0); MEAN CORPUSCULAR HGB CONC 34 g/dl (31.0-36.0); MEAN CORPUSCULAR VOLUME 85 fL (80-96); MONOCYTES # (AUTO) 0.6 /CMM (0.1-1.30); MONOCYTES % (AUTO) 5.9 % (2.0-12.0); NEUTROPHILS # (AUTO) 8.5 /CMM (1.8-8.9); NEUTROPHILS % (AUTO) 81.5 % (43.0-81.0); PLATELET COUNT (AUTO) 314 /CMM (150-450); RDW COEFFICIENT OF VARIATION 12.6 (11.5-15.0); RED BLOOD CELL COUNT(AUTO) 3.67 MIL/uL (4.5-6.0); WHITE BLOOD COUNT (AUTO) 10.5 K/uL (4.3-11.0)
[2017-08-28 06:33] LABS: CALCIUM, SERUM 6.3 mg/dL (8.5-10.1)
[2017-08-28 06:35] LABS: POTASSIUM 2.5 mmol/L (3.5-5.1)
--- NOTE | 2017-08-28 06:36 | NUR ---
MS RN NOTES PT IN BED, AWAKE, A/0 X 4. VERBALLY RESPONSIVE. NO DISTRESS, NOR SOB NOTED AT THIS TIME. ABDOMEN IS SOFT AND NON DISTENDED. PT STILL WITH ON AND OFF EPISODE OF VOMITING. PT ON ZOFRAN PRN AND REGLAN IVP, WILL GIVE ORDERED. IV SITE ON LEFT HAND INTACT AND PATENT, IVF INFUSING WELL. NO S/S OF HYPO/ HYPERGLYCEMIA NOTED. PT FOR EGD TODAY. ON NPO SINCE MIDNIGHT, DISCUSSED WITH THE PT , PT VERBALIZED UNDERSTANDING. ALL DUE MEDS GIVEN. ALL NEEDS ATTENDED AND MET. KEPT COMFORTABLE. SAFETY PRECAUTIONS OBSERVED. CALL LIGHT WITHIN REACH. WILL ENDORSE TO NEXT SHIFT FOR EDEL.
--- NOTE | 2017-08-28 06:50 | NUR ---
RECEIVED A CALL FROM LAB REGARDING POTASSIUM : 2.5 . PLACED A CALL TO [facility], GERMAIN WAS PAGED AND AWAITING FOR A CALL BACK. ENDORSED TO ISAI ACCORDINGLY.
--- NOTE | 2017-08-28 07:00 | NUR ---
TEXTED DR. BRADLEY FOR MRI APPROVAL.
--- NOTE | 2017-08-28 07:10 | NUR ---
RN NOTES PT IS SITTING UP IN BED, AWAKE AND ALERT. PT ON RA, RESPIRATIONS ARE EVEN AND UNLABORED. IV ON L HAND INTACT AND RUNNING NS @ 100ML/HR. SAFETY MEASURES ARE IN PLACE, CALL LIGHT IS IN REACH. WILL CONTINUE TO MONITOR.
[2017-08-28 08:00] VITALS: BP 127/77
[2017-08-28] MEDS ORDERED: POTASSIUM CL. PREMIX PERIPHER. 50 ML IV SCH (08:00)
[2017-08-28] MEDS: METFORMIN 500 MG TABLET PO SCH ×2 (08:31→16:06)
[2017-08-28] MEDS: INSULIN GLARGINE, 100 UNIT/ML CARTRIDGE SQ SCH ×2 (08:31→21:54)
[2017-08-28] MEDS: LACTOBACILLUS RHAMNOSUS GG 1 EACH CAP.SPRINK PO SCH ×2 (08:31→16:06)
[2017-08-28] MEDS: SUCRALFATE 1 G TABLET PO SCH ×3 (10:08→21:36)
[2017-08-28] MEDS: POTASSIUM CHLORIDE 20 MEQ TAB.PRT.SR PO SCH ×2 (10:09→11:09)
[2017-08-28] MEDS: VANCOMYCIN 1 GM in IV NS 0.9% 250 ML IV SCH (11:09)
--- NOTE | 2017-08-28 13:00 | NUR ---
RN NOTES PT 1300 ACCUCHECK 253, NO INSULIN COVERAGE GIVEN AT THIS TIME. PT NPO FOR PROCEDURE.
[2017-08-28 16:00] VITALS: BP 121/79
[2017-08-28] MEDS: PANTOPRAZOLE 40 MG VIAL IV SCH (16:06)
[2017-08-28] MEDS: IV 1/2NS 1000 ML 1,000 ML IV PRN (16:06)
[2017-08-28] MEDS: LEVOFLOXACIN (500MG) 500 MG TABLET PO SCH (17:10)
--- NOTE | 2017-08-28 17:20 | NUR ---
RN NOTES PT GIVEN 1700 AND 1800 MEDICATIONS DUE. PT BEGAN VOMITING AND IS UNABLE TO KEEP ANY MEDICATIONS DOWN AT THIS TIME. ZOFRAN AND REGLAN HAVE BEEN GIVEN THROUGHOUT THE SHIFT ORDERED.
[2017-08-28] MEDS: INSULIN REGULAR, HUMAN 100 UNIT/ML 3 ML VIAL SQ PRN ×2 (17:30→21:42)
--- NOTE | 2017-08-28 18:00 | NUR ---
RN NOTES FOLLOWED UP WITH DR. NARVAEZ REGARDING MIDLINE INSERTION. NO UPDATE FROM DOCTOR TO HAVE PLACED. WILL ENDORSE TO OFFSET PRINTING OPERATOR RN TO FOLLOW UP.
--- NOTE | 2017-08-28 18:53 | NUR ---
RN NOTES PT IS LAYING DOWN IN BED, RESTING COMFORTABLY. PT ON RA, RESPIRATIONS ARE EVEN AND UNLABORED. IV ON L HAND INTACT AND PATENT. ALL MEDS WERE GIVEN ORDERED. ZOFRAN GIVEN THROUGHOUT SHIFT TO CONTROL NAUSEA/VOMITING. ALL PT NEEDS ANTICIPATED FOR AND MET. WOUND CARE DONE FOR FOOT ORDERED. NO SIGNS OF DISTRESS NOTED. SAFETY MEASURES ARE IN PLACE, CALL LIGHT IS IN REACH. WILL ENDORSE TO INSPECTOR PACKER RN FOR CONTINUITY OF CARE.
--- NOTE | 2017-08-28 19:15 | NUR ---
MS RN NOTES RECEIVED PT IN BED, SITTING UP IN BED, AWAKE, A/O X 4. VERBALLY RESPONSIVE. FAMILY AT BED SIDE. NO DISTRESS, NO SOB NOTED. RESPIRATION IS EVEN AND UNLABORED. IV SITE ON LEFT HAND INTACT AND PATENT, IVF INFUSING WELL. NO S/S OF HYPO/ HYPERGLYCEMIA NOTED. RIGHT 5TH TOE AND RIGHT GREAT TOE WOUND, COVERED WITH CLEAN, AND INTACT DRESSING. PT STILL NOTED WITH ON AND OFF EPISODE OF VOMITING. ALL NEEDS ATTENDED AND MET. KEPT COMFORTABLE. SAFETY PRECAUTIONS OBSERVED. CALL LIGHT WITHIN REACH. WILL CONTINUE TO MONITOR.
[2017-08-28 20:00] VITALS: BP 115/69
[2017-08-28] MEDS ORDERED: VANCOMYCIN 1 GM VIAL ONE (21:30)
[2017-08-28] MEDS: ENOXAPARIN SODIUM 40 MG/0.4 ML DISP.SYRIN SQ SCH (21:41)
[2017-08-28] MEDS: VANCOMYCIN 1.25 GM in IV D5W 500 ML IV SCH (21:42)
[2017-08-29] MEDS: BLOOD SUGAR DIAGNOSTIC 1 EACH STRIP IN SCH ×6 (00:58→21:16)
[2017-08-29] MEDS: METOCLOPRAMIDE HCL 10 MG/2 ML VIAL IV SCH ×3 (00:58→17:18)
[2017-08-29] MEDS: ONDANSETRON HCL/PF 4 MG/2 ML VIAL IV PRN (05:23)
--- NOTE | 2017-08-29 05:23 | NUR ---
PT C/O VOMITING, PT REQUESTED FOR ZOFRAN GIVEN ORDERED. WILL CONT TO MONITOR.
[2017-08-29 06:16] LABS: BASOPHILS % (AUTO) 0.2 % (0.0-2.0); EOSINOPHILS % (AUTO) 0.1 % (0.0-6.0); HEMATOCRIT 39 % (39-51); HEMOGLOBIN 13.3 g/dL (13.5-17.5); LYMPHOCYTES # (AUTO) 1.9 /CMM (0.8-4.8); LYMPHOCYTES % (AUTO) 16.9 % (20.0-44.0); MEAN CORPUSCULAR HGB CONC 34 g/dl (31.0-36.0); MEAN CORPUSCULAR VOLUME 85 fL (80-96); MONOCYTES # (AUTO) 0.7 /CMM (0.1-1.30); NEUTROPHILS # (AUTO) 8.5 /CMM (1.8-8.9); NEUTROPHILS % (AUTO) 76.8 % (43.0-81.0); PLATELET COUNT (AUTO) 376 /CMM (150-450); RDW COEFFICIENT OF VARIATION 12.9 (11.5-15.0); RED BLOOD CELL COUNT(AUTO) 4.56 MIL/uL (4.5-6.0); WHITE BLOOD COUNT (AUTO) 11.1 K/uL (4.3-11.0)
--- NOTE | 2017-08-29 06:27 | NUR ---
MS RN NOTES PT IN BED, RESTING COMFORTABLY AT THIS TIME, AROUSES EASILY, A/O X 4. VERBALLY RESPONSIVE. NO DISTRESS, NO SOB NOTED. RESPIRATION IS EVEN AND UNLABORED. IV SITE ON LEFT HAND INTACT AND PATENT, IVF INFUSING WELL. NO S/S OF HYPO/ HYPERGLYCEMIA NOTED. RIGHT 5TH TOE AND RIGHT GREAT TOE WOUND, COVERED WITH CLEAN, AND INTACT DRESSING. NO S/S OF BLEEDING NOTED. PT STILL NOTED WITH ON AND OFF EPISODE OF VOMITING. ZOFRAN AND REGLAN GIVEN ORDERED. ALL NEEDS ATTENDED AND MET. KEPT COMFORTABLE. SAFETY PRECAUTIONS OBSERVED. CALL LIGHT WITHIN REACH. WILL ENDORSE TO NEXT SHIFT FOR EDEL.
[2017-08-29 06:38] LABS: CALCIUM, SERUM 8.8 mg/dL (8.5-10.1); CREATININE 1.3 mg/dL (0.6-1.3); POTASSIUM 3.4 mmol/L (3.5-5.1)
--- NOTE | 2017-08-29 07:05 | NUR ---
RN NOTES PT IS LAYING DOWN IN BED, SLEEPING COMFORTABLY. PT ON RA, RESPIRATIONS ARE EVEN AND UNLABORED. IV ON L HAND INTACT AND PATENT. NO SIGNS OF DISTRESS NOTED. SAFETY MEASURES ARE IN PLACE, CALL LIGHT IS IN REACH. WILL CONTINUE TO MONITOR.
[2017-08-29] MEDS: SUCRALFATE 1 G TABLET PO SCH ×4 (07:30→21:24)
[2017-08-29 08:00] VITALS: BP 101/68
[2017-08-29 08:07] VITALS: BP 101/68
[2017-08-29] MEDS: METFORMIN 500 MG TABLET PO SCH ×2 (08:35→16:33)
[2017-08-29] MEDS: LACTOBACILLUS RHAMNOSUS GG 1 EACH CAP.SPRINK PO SCH ×2 (08:35→16:32)
[2017-08-29] MEDS: diphenhydrAMINE HCL 50 MG/ML VIAL IV PRN (08:47)
[2017-08-29] MEDS: INSULIN GLARGINE, 100 UNIT/ML CARTRIDGE SQ SCH ×2 (08:49→21:24)
[2017-08-29] MEDS: VANCOMYCIN 1.25 GM in IV D5W 500 ML IV SCH ×2 (09:49→21:11)
[2017-08-29] MEDS ORDERED: POTASSIUM CHLORIDE 20 MEQ TAB.PRT.SR PO SCH (11:00)
--- NOTE | 2017-08-29 13:10 | NUR ---
RN NOTES MID LINE PLACED THIS AM BY DR. NARVAEZ PER ORDER FOR PENITENTIARY ANTIBIOTICS. PER GLORIA RESENDEZ NP PROGRESS NOTE LAST NIGHT. PICC LINE NEEDED DUE TO LONGER COURSE OF ANTIBIOTICS. INVESTIGATOR FRAUD RN DID NOT ENDORSE TO DAY SHIFT TO FOLLOW UP. PAVEL ACCESS CONTROL OFFICER NOTIFIED ANNABELLA CABRALES NP. NO ORDER FOR PICC LINE PLACED AT THIS TIME. DR. NARVAEZ NOTIFIED. DR. NARVAEZ SAID IT IS OKAY FOR HIM TO LEAVE, PT WILL NEED TO HAVE OUTPATIENT APPOINTMENT FOR NEW MIDLINE AFTER DISCHARGE. WILL INFORM PAVEL ACCESS CONTROL OFFICER.
[2017-08-29] MEDS ORDERED: POTASSIUM CHLORIDE 10 MEQ/50 ML PREMIXED IVPB FOR PERIPHERAL LINE IV ONE ×2 (14:00→14:30)
[2017-08-29] MEDS ORDERED: Potassium Chloride 10 MEQ in IV D5W 50 ML IV SCH (14:30)
[2017-08-29] MEDS: IV 1/2NS 1000 ML 1,000 ML IV PRN (14:40)
[2017-08-29] MEDS ORDERED: POLYETHYLENE GLYCOL 3350 17 GM POWD.PACK PO PRN (15:30)
[2017-08-29 16:00] VITALS: BP 134/89
[2017-08-29 16:18] VITALS: BP 134/89
[2017-08-29] MEDS: LEVOFLOXACIN (500MG) 500 MG TABLET PO SCH (17:11)
[2017-08-29] MEDS: PANTOPRAZOLE 40 MG VIAL IV SCH (17:17)
--- NOTE | 2017-08-29 17:33 | NUR ---
RN NOTES 1700 ACCUCHECK WAS 151, NO INSULIN GIVEN DUE TO NPO STATUS
[2017-08-29] MEDS ORDERED: PROCHLORPERAZINE MALEATE SUPP 25 MG/SUPP.RECT SUPP.RECT RC PRN (18:30)
--- NOTE | 2017-08-29 18:31 | NUR ---
RN NOTES PT IS LAYING DOWN IN BED, RESTING COMFORTABLY. PT ON RA, RESPIRATIONS ARE EVEN AND UNLABORED. IV ON L HAND INTACT AND SL, ARUN MIDLINE INTACT AND RUNNING 1/2 NS@ 80ML/HR. ALL MEDS WERE GIVEN ORDERED AND PT NEEDS MET. SAFETY MEASURES ARE IN PLACE, CALL LIGHT IS IN REACH. WILL ENDORSE TO BREAKER MECHANIC RN FOR CONTINUITY OF CARE.
--- NOTE | 2017-08-29 19:00 | NUR ---
MS RN NOTES RECEIVED PT IN BED, RESTING COMFORTABLY AT THIS TIME. AROUSES EASILY, A/O X 4. VERBALLY RESPONSIVE. FAMILY MEMBER AT BEDSIDE. NO DISTRESS, NO SOB NOTED. RESPIRATION IS EVEN AND UNLABORED. PT STILL NOTED WITH ON AND OFF EPISODE OF VOMITING, ASPIRATION PRECAUTION OBSERVED. PT ON NPO. IV SITE ON LEFT HAND INTACT AND PATENT, NO S/S OF INFILTRATION NOTED. IVF INFUSING WELL. RIGHT FOOT WOUND WITH CLEAN AND INTACT DRESSING. NO BLEEDING NOTED AT THIS TIME. NO C/O PAIN OR DISCOMFORT AT THIS TIME. ALL NEEDS ATTENDED AND MET. KEPT COMFORTABLE. SAFETY PRECAUTIONS OBSERVED. CALL LIGHT WITHIN REACH. WILL CONT TO MONITOR.
[2017-08-29 20:00] VITALS: BP 118/71
[2017-08-29] MEDS: ENOXAPARIN SODIUM 40 MG/0.4 ML DISP.SYRIN SQ SCH (21:12)
--- NOTE | 2017-08-29 21:24 | NUR ---
FAVIOLA HELD DUE TO PT ON ON NPO. BS :[id number] AT THIS TIME, NO S/S OF HYPOGLYCEMIA AT THIS TIME. PT A/O X 4.
[2017-08-29] MEDS ORDERED: METOCLOPRAMIDE HCL 10 MG/2 ML VIAL IV SCH (23:00)
[2017-08-30] MEDS: BLOOD SUGAR DIAGNOSTIC 1 EACH STRIP IN SCH ×6 (01:20→21:07)
--- NOTE | 2017-08-30 06:28 | NUR ---
MS RN NOTES PT IN BED, RESTING COMFORTABLY AT THIS TIME. AROUSES EASILY, A/O X 4. VERBALLY RESPONSIVE. NO DISTRESS, NO SOB NOTED. RESPIRATION IS EVEN AND UNLABORED. PT ON NPO. NOTED WITH LESS EPISODE OF VOMITING. OFFERED ZOFRAN AND COMPAZINE BUT PT DIDN'T WANT IT. IV SITE ON LEFT HAND INTACT AND PATENT, NO S/S OF INFILTRATION NOTED. IVF INFUSING WELL. RIGHT FOOT WOUND WITH CLEAN AND INTACT DRESSING. NO BLEEDING NOTED AT THIS TIME. NO C/O PAIN OR DISCOMFORT AT THIS TIME. NO S/S OF HYPOGLYCEMIA. ALL NEEDS ATTENDED AND MET. KEPT COMFORTABLE. SAFETY PRECAUTIONS OBSERVED. CALL LIGHT WITHIN REACH. WILL ENDORSE TO NEXT SHIFT FOR EDEL.
--- NOTE | 2017-08-30 07:20 | NUR ---
RN OPENING NOTES RECEIVED PATIENT IN BED RESTING. NO ACUTE DISTRESS, NO SOB NOTED. NO S/S OF PAIN OR DISCOMFORT. IV SITE INTACT AND PATENT. KEPT PATIENT SAFE AND COMFORTABLE. BED IN LOW/LOCKED POSITION, SIDERAILS UPX2. CALL LIGHT IN REACH, WILL CONTINUE TO MONITOR ACCORDINGLY.
[2017-08-30] MEDS: SUCRALFATE 1 G TABLET PO SCH ×4 (07:30→21:07)
[2017-08-30 07:42] LABS: CALCIUM, SERUM 8.3 mg/dL (8.5-10.1); CREATININE 1.2 mg/dL (0.6-1.3); POTASSIUM 3.4 mmol/L (3.5-5.1)
[2017-08-30 08:00] VITALS: BP 156/84
[2017-08-30] MEDS: IV 1/2NS 1000 ML 1,000 ML IV PRN ×2 (08:26→21:18)
[2017-08-30] MEDS: VANCOMYCIN 1.25 GM in IV D5W 500 ML IV SCH ×2 (08:30→21:07)
[2017-08-30] MEDS: PANTOPRAZOLE 40 MG VIAL IV SCH ×2 (08:39→16:21)
[2017-08-30] MEDS: LACTOBACILLUS RHAMNOSUS GG 1 EACH CAP.SPRINK PO SCH ×2 (08:47→16:20)
[2017-08-30] MEDS: METFORMIN 500 MG TABLET PO SCH ×2 (08:48→16:20)
[2017-08-30] MEDS: INSULIN GLARGINE, 100 UNIT/ML CARTRIDGE SQ SCH ×2 (08:49→21:18)
--- NOTE | 2017-08-30 10:49 | NUR ---
RN NOTES ANNABELLA CABRALES NP ON BEDSIDE TALKING TO PATIENT. NEW ORDERS NOTED AND CARRIED OUT.
[2017-08-30] MEDS: POTASSIUM CL. PREMIX PERIPHER. 50 ML IV SCH ×2 (11:11→12:19)
[2017-08-30] MEDS: METOCLOPRAMIDE HCL 10 MG TABLET PO SCH ×2 (12:16→17:00)
[2017-08-30] MEDS: ONDANSETRON HCL/PF 4 MG/2 ML VIAL IV PRN ×2 (13:01→16:54)
--- NOTE | 2017-08-30 14:17 | NUR ---
RN NOTES MADE A FOLLOW UP ON DR NARVAEZ REGARDING PICC LINE INSERTION. PER DR NARVAEZ " WHEN HE LEAVES, THAT'S WHEN ML GETS CONVERTED TO PICC".
[2017-08-30 15:56] LABS: BASOPHILS % (AUTO) 0.4 % (0.0-2.0); EOSINOPHILS % (AUTO) 0.3 % (0.0-6.0); HEMATOCRIT 39 % (39-51); HEMOGLOBIN 13.4 g/dL (13.5-17.5); LYMPHOCYTES # (AUTO) 1.6 /CMM (0.8-4.8); LYMPHOCYTES % (AUTO) 14.9 % (20.0-44.0); MEAN CORPUSCULAR HGB CONC 34 g/dl (31.0-36.0); MEAN CORPUSCULAR VOLUME 85 fL (80-96); MONOCYTES # (AUTO) 0.7 /CMM (0.1-1.30); NEUTROPHILS # (AUTO) 8.5 /CMM (1.8-8.9); NEUTROPHILS % (AUTO) 78.4 % (43.0-81.0); PLATELET COUNT (AUTO) 344 /CMM (150-450); RDW COEFFICIENT OF VARIATION 12.7 (11.5-15.0); RED BLOOD CELL COUNT(AUTO) 4.61 MIL/uL (4.5-6.0); WHITE BLOOD COUNT (AUTO) 10.8 K/uL (4.3-11.0)
[2017-08-30 16:06] VITALS: BP 157/86
[2017-08-30] MEDS: LEVOFLOXACIN (500MG) 500 MG TABLET PO SCH (17:00)
--- NOTE | 2017-08-30 18:00 | NUR ---
RN NOTES PATIENT VOMITED X1, ABOUT 400ML. ANNABELLA CABRALES NP MADE AWARE. PER ANNABELLA, CONTINUE TO GIVE ZOFRAN.
--- NOTE | 2017-08-30 19:30 | NUR ---
RN CLOSING NOTES PATIENT IN BED RESTING. NO ACUTE DISTRESS, NO SOB NOTED. DENIES PAIN OR DISCOMFORT. ALL NEEDS ATTENDED AND PROVIDED. KEPT PATIENT SAFE AND COMFORTABLE. BED IN LOW/LOCKED POSITION, SIDERAILS UPX2, CALL LIGHT IN REACH. ENDORSED TO NIGHT RN FOR EDEL.
--- NOTE | 2017-08-30 19:40 | NUR ---
MS RN INITIAL NOTE PT IS IN BED RESTING. NO SIGNS OF SOB OR DISTRESS, BREATHING EVENLY AND UNLABORED ON RA. DENIES PAIN AT THIS TIME.IV ACCESS IS INTACT AND PATENT. BED IS IN LOW AND LOCKED POSITION, CALL LIGHT WITHIN REACH. WILL CONTINUE TO MONITOR PT
[2017-08-30 20:00] VITALS: BP 137/88
[2017-08-30 20:10] VITALS: BP 137/88
[2017-08-30] MEDS: ENOXAPARIN SODIUM 40 MG/0.4 ML DISP.SYRIN SQ SCH (21:10)
--- NOTE | 2017-08-30 21:15 | NUR ---
MS RN NOTE BS 150, PT REFUSING JUICE OR SNACK DUE TO NAUSEA. NO INSULIN ADMINISTERED. WILL CONTINUE TO MONITOR PT
--- NOTE | 2017-08-30 21:37 | NUR ---
MS RN NOTE ATTEMPTED TO CHANGE PTS DRESSING PRIOR TO PT SLEEPING, PT REFUSED AND TOLD ME TO TRY AGAIN IN THE MORNING. WILL REATTEMPT IN THE MORNING.
[2017-08-31] MEDS: BLOOD SUGAR DIAGNOSTIC 1 EACH STRIP IN SCH ×6 (00:18→21:07)
--- NOTE | 2017-08-31 00:20 | NUR ---
MS RN NOTE BS 185, PT REFUSING JUICE OR SNACK DUE TO NAUSEA. NO INSULIN ADMINISTERED. WILL CONTINUE TO MONITOR PT
[2017-08-31] MEDS: ONDANSETRON HCL/PF 4 MG/2 ML VIAL IV PRN (02:12)
--- NOTE | 2017-08-31 02:36 | NUR ---
MS RN NOTE WOUND CARE RENDERED
[2017-08-31] MEDS: METOCLOPRAMIDE HCL 10 MG TABLET PO SCH ×4 (04:39→18:02)
[2017-08-31 06:18] LABS: CALCIUM, SERUM 8.3 mg/dL (8.5-10.1); POTASSIUM 3.4 mmol/L (3.5-5.1)
--- NOTE | 2017-08-31 06:21 | NUR ---
MS RN CLOSING NOTE PT IS IN BED RESTING. NO SIGNS OF SOB OR DISTRESS, BREATHING EVENLY AND UNLABORED ON RA. DENIES PAIN AT THIS TIME. IV ACCESS IS INTACT AND PATENT. BED IS IN LOW AND LOCKED POSITION, CALL LIGHT WITHIN REACH. WILL CONTINUE TO MONITOR PT.
--- NOTE | 2017-08-31 07:20 | NUR ---
MS/RN OPENING NOTE PATIENT ALERT AND ORIENTED X4. DENIES SOB, PAIN AT THIS TIME. RESPIRATION REGULAR AND UNLABORED. PATIENT IN NO APPARENT DISTRESS. ARUN MIDLINE PATENT AND IV INFUSING WITH NO S/S INFILTRATION. BED LOW AND LOCKED. SIDE RAILS UP X2. CALL LIGHT WITHIN REACH. WILL CONTINUE MONITOR.
[2017-08-31 08:00] VITALS: BP 138/96
[2017-08-31] MEDS: ONDANSETRON 4 MG TAB.RAPDIS PO PRN (08:13)
--- NOTE | 2017-08-31 08:14 | NUR ---
MS/RN NOTE PATIENT HAS COMPLAINS OF NAUSEA AND VOMITED X2 (TOTAL 30 ML) CLEAR WHITE VOMITUS. PRN ZOFRAN IS ADMINISTERED ORDERED.
[2017-08-31] MEDS: METFORMIN 500 MG TABLET PO SCH ×2 (09:00→17:59)
[2017-08-31] MEDS: INSULIN GLARGINE, 100 UNIT/ML CARTRIDGE SQ SCH ×2 (09:00→21:17)
[2017-08-31] MEDS: LACTOBACILLUS RHAMNOSUS GG 1 EACH CAP.SPRINK PO SCH ×2 (09:04→17:59)
[2017-08-31] MEDS: SUCRALFATE 1 G TABLET PO SCH ×4 (09:04→21:09)
[2017-08-31] MEDS: VANCOMYCIN 1.25 GM in IV D5W 500 ML IV SCH ×2 (09:04→21:09)
[2017-08-31] MEDS: PANTOPRAZOLE 40 MG VIAL IV SCH ×2 (09:04→18:01)
--- NOTE | 2017-08-31 09:18 | NUR ---
MS/RN NOTE PATIENT REFUSED TO EAT DUE TO RECENT EPISODES OF NAUSEA/VOMITING. THE PATIENT DENIES NAUSEA/VOMITING AT THIS TIME BUT STILL REFUSES TO EAT. BLOOD SUGAR 165, SLIDING SCALE COVERAGE, GLUCOPHAGE AND LANTUS NOT ADMINISTERED DUE TO PATIENT NOT EATING. PREVENTING SUDDEN DROP IN BLOOD SUGAR.
[2017-08-31] MEDS ORDERED: POTASSIUM CHLORIDE 20 MEQ TAB.PRT.SR PO ONE (10:00)
[2017-08-31] MEDS: INSULIN REGULAR, HUMAN 100 UNIT/ML 3 ML VIAL SQ PRN (12:55)
[2017-08-31 14:26] VITALS: BP 133/72
[2017-08-31] MEDS: IV 1/2NS 1000 ML 1,000 ML IV PRN (15:55)
[2017-08-31 16:00] VITALS: BP 128/78
--- NOTE | 2017-08-31 17:58 | NUR ---
MS/RN NOTE BLOOD SUGAR 206 BUT SLIDING SCALE INSULIN NOT GIVEN DUE TO PATIENT REFUSING TO EAT.
[2017-08-31] MEDS: LEVOFLOXACIN (500MG) 500 MG TABLET PO SCH (17:59)
--- NOTE | 2017-08-31 18:22 | NUR ---
MS/RN CLOSING NOTE PATIENT ALERT AND ORIENTED X4. DENIES SOB. RESPIRATION REGULAR AND UNLABORED. DENIES PAIN AT THIS TIME. NO C/O NAUSEA OR VOMITING AT THIS TIME. ABDOMEN SOFT AND NON-DISTENDED. PATIENT CONTINENT ON BOWEL AND BLADDER. NO BOWEL MOVEMENT DURING THE SHIFT. PATIENT ABLE TO VOID FREELY CLEAR AND YELLOW COLOR URINE WITH NO FOUL ODOR. REFUSED DRESSING CHANGE TO RIGHT 5TH TOE AND RIGHT BIG TOE WOUND DESPITE EXPLAINING RISKS AND BENEFITS MULTIPLE TIMES. LEFT HAND G 20 AND RIGHT UPPER ARM MIDLINE PATENT AND IVF INFUSING WITH NO S/S INFILTRATION. BED LOW AND LOCKED. SIDE RAILS UP X2. BED LOW AND LOCKED. CALL LIGHT WITHIN REACH. WILL ENDORSE TO SUPERVISOR RECORD PRESS.
--- NOTE | 2017-08-31 19:35 | NUR ---
MS RN INITIAL NOTE PT IS IN BED RESTING. FAMILY AT BEDSIDE. NO SIGNS OF SOB OR DISTRESS, BREATHING EVENLY AND UNLABORED ON RA. DENIES PAIN AT THIS TIME.IV ACCESS IS INTACT AND PATENT. BED IS IN LOW AND LOCKED POSITION, CALL LIGHT WITHIN REACH. WILL CONTINUE TO MONITOR PT
[2017-08-31] MEDS: ENOXAPARIN SODIUM 40 MG/0.4 ML DISP.SYRIN SQ SCH (21:08)
[2017-08-31] MEDS: diphenhydrAMINE HCL 50 MG/ML VIAL IV PRN (22:52)
[2017-09-01] MEDS: BLOOD SUGAR DIAGNOSTIC 1 EACH STRIP IN SCH ×5 (01:00→17:36)
[2017-09-01] MEDS: METOCLOPRAMIDE HCL 10 MG TABLET PO SCH ×4 (05:00→17:36)
--- NOTE | 2017-09-01 06:49 | NUR ---
MS RN CLOSING NOTE PT IS IN BED RESTING. NO SIGNS OF SOB OR DISTRESS, BREATHING EVENLY AND UNLABORED ON RA. DENIES PAIN AT THIS TIME. IV ACCESS IS INTACT AND PATENT. PT REFUSED DRESSING CHANGE AND PICTURES AFTER MULTIPLE ATTEMPTS. BED IS IN LOW AND LOCKED POSITION, CALL LIGHT WITHIN REACH. WILL ENDORSE TO DAYSHIFT.
--- NOTE | 2017-09-01 07:36 | NUR ---
MS RN OPENING NOTES RECEIVED PT FROM NIGHTSHIFT NURSE IN STABLE CONDITION. PT IS A/O X4. NO SOB OR SIGNS OF DISTRESS NOTED. BREATHING IS EVEN AND UNLABORED. PT IS ON RA AND SATING WELL. IV TO LEFT HAND NOTED TO BE PATENT AND INTACT. RIGHT UPPER ARM MIDLINE NOTED TO ALSO BE PATENT AND INTACT. PT TOLERATING NS INFUSION WELL. NO REDNESS OR SIGNS OF INFILTRATION NOTED. DRESSING TO RIGHT TOES NOTED TO BE CLEAN, DRY, AND INTACT. PER NIGHTSHIFT NURSE, PT REFUSED FRIDAY WOUND PHOTOS. BED IN LOW LOCKED POSITION, SIDE RAILS UP X2, CALL LIGHT WITHIN REACH. WILL CONTINUE TO MONITOR.
[2017-09-01 07:57] VITALS: BP 120/75
[2017-09-01 07:59] LABS: CALCIUM, SERUM 8.1 mg/dL (8.5-10.1); CREATININE 1.1 mg/dL (0.6-1.3); POTASSIUM 3.5 mmol/L (3.5-5.1)
[2017-09-01] MEDS: PANTOPRAZOLE 40 MG VIAL IV SCH ×2 (08:49→17:36)
[2017-09-01] MEDS: SUCRALFATE 1 G TABLET PO SCH ×4 (08:49→21:08)
[2017-09-01] MEDS: METFORMIN 500 MG TABLET PO SCH ×2 (08:49→17:36)
[2017-09-01] MEDS: LACTOBACILLUS RHAMNOSUS GG 1 EACH CAP.SPRINK PO SCH ×2 (08:49→17:36)
[2017-09-01] MEDS: VANCOMYCIN 1.25 GM in IV D5W 500 ML IV SCH ×2 (08:50→21:07)
[2017-09-01] MEDS: INSULIN GLARGINE, 100 UNIT/ML CARTRIDGE SQ SCH ×2 (08:50→21:13)
[2017-09-01] MEDS: IV 1/2NS 1000 ML 1,000 ML IV PRN (08:56)
--- NOTE | 2017-09-01 09:24 | NUR ---
BLOOD SUGAR MANAGEMENT 0900 INSULIN WAS NOT GIVEN PT REFUSED BREAKFAST. HIS CURRENT BS IS 169. WILL CONTINUE TO MONITOR FOR SIGNS OF HYPER/HYPO GLYCEMIA
--- NOTE | 2017-09-01 10:06 | NUR ---
PICC LINE INSERTION FOLLOW-UP DR. NARVAEZ CONTACTED IN REGARDS TO PICC LINE INSERTION. PER MD "I WILL INSERT THE PICC ONCE A D/C ORDER IS IN". WILL MADE ANNABELLA THE OIL GAS AND PIPE TESTER AWARE AND NOTIFY DR. NARVAEZ WHEN AN ORDER IS IN
--- NOTE | 2017-09-01 10:36 | NUR ---
MS RN NOTES ANNABELLA MADE AWARE OF DR. NARVAEZ'S COMMENTS IN REGARDS TO PICC INSERTION. HE ALSO STATES THAT PT'S ACCU CHECKS MAY BE CHANGED FROM Q4 TO Q6.
[2017-09-01] MEDS: ONDANSETRON HCL/PF 4 MG/2 ML VIAL IV PRN (11:48)
[2017-09-01] MEDS: INSULIN REGULAR, HUMAN 100 UNIT/ML 3 ML VIAL SQ PRN (13:00)
--- NOTE | 2017-09-01 14:07 | NUR ---
DIET ORDER PT'S DIET WAS ADVANCED TO FULL LIQUIDS PER MD ORDER. HE WAS ABLE TO TOLERATE A CLEAR LIQUID LUNCH TRAY WITHOUT ANY EPISODES OF NAUSEA OR VOMITING.
[2017-09-01 16:00] VITALS: BP 110/71
[2017-09-01] MEDS: LEVOFLOXACIN (500MG) 500 MG TABLET PO SCH (17:36)
--- NOTE | 2017-09-01 18:22 | NUR ---
MS RN CLOSING NOTES PT REMAINS IN STABLE CONDITION. ALL NEEDS WERE MET DURING SHIFT AND ORDERS CARRIED OUT ACCORDINGLY. ALL DUE MEDS GIVEN. COMPAZINE WAS ADMINISTERED PT HAD AN EPISODE OF EMESIS AROUND 1730. NAUSEA HAS IMPROVED AND EMESIS HAS CEASED. RIGHT UPPER ARM MIDLINE REMAINS PATENT AND INTACT. DR. NARVAEZ WILL INSERT PICC ONCE D/C ORDER IS IN. WOUND AND SKIN CARE RENDERED ORDERED. SAFETY MEASURES REMAIN IN PLACE. WILL ENDORSE TO NIGHTSHIFT NURSE FOR EDEL
--- NOTE | 2017-09-01 19:30 | NUR ---
MS/RN OPENING NOTES PT RECEIVED RESTING IN BED, EYES CLOSED. AROUSABLE TO NAME. A/OX4. ON ROOM AIR, BREATHING EVEN AND UNLABORED. DENIES SOB OR PAIN AT THIS TIME. ALSO DENIES N/V/D. DRESSING TO RIGHT FOOT C/D/I. ON FULL LIQUID DIET. ARUN MIDLINE PATENT AND INTACT RUNNING IVF ORDERED. BED IN LOW/LOCKED POSITION WITH CALL LIGHT IN REACH. SIDE RAILS UPX2. WILL CONTINUE TO MONITOR
[2017-09-01 20:00] VITALS: BP 115/72
[2017-09-01] MEDS: ENOXAPARIN SODIUM 40 MG/0.4 ML DISP.SYRIN SQ SCH (21:12)
--- NOTE | 2017-09-01 21:20 | NUR ---
MS/RN NOTES BLOOD [id number], HELD SCHEDULED LANTUS FOR TONIGHT. PT STATED HE DID NOT HAVE DINNER AND DOES NOT WANT ANYTHING TO DRINK RIGHT NOW. WILL RECHECK BLOOD SUGAR AT MIDNIGHT FOR SLIDING SCALE AND MONITOR FOR S/S OF HYPO/HYPERGLYCEMIA
[2017-09-02] MEDS: BLOOD SUGAR DIAGNOSTIC 1 EACH STRIP IN SCH ×3 (00:29→11:50)
[2017-09-02] MEDS: METOCLOPRAMIDE HCL 10 MG TABLET PO SCH ×3 (00:29→11:50)
[2017-09-02] MEDS: INSULIN REGULAR, HUMAN 100 UNIT/ML 3 ML VIAL SQ PRN ×2 (00:35→11:52)
--- NOTE | 2017-09-02 05:36 | NUR ---
MS/RN NOTES BLOOD [id number], PT CURRENTLY WITH POOR APPETITE. DOES NOT WANT TO EAT/DRINK. WILL MONITOR FOR S/S OF HYPO/HYPERGLYCEMIA
[2017-09-02] MEDS: ONDANSETRON HCL/PF 4 MG/2 ML VIAL IV PRN (06:51)
--- NOTE | 2017-09-02 06:53 | NUR ---
MS/RN NOTES PT ACTIVELY VOMITING. NON-ADMIT PO REGLAN AND ADMINISTERED PRN ZOFRAN IV INSTEAD. WILL MONITOR FOR EFFECTIVENESS
[2017-09-02 06:59] LABS: CALCIUM, SERUM 8.4 mg/dL (8.5-10.1); CREATININE 1.1 mg/dL (0.6-1.3)
--- NOTE | 2017-09-02 07:10 | NUR ---
ms rn initial notes Received patient in bed, awake, head of bed elevated, no SOB or distress noted, on room air and tolerated well. IV midline intact and patent with IVF infusing well. Alert and oriented x 4, verbally responsive and able to make needs known. No complaint of pain or discomfort at this time. Call light with in patient reach, will continue to monitor accordingly.
--- NOTE | 2017-09-02 07:10 | NUR ---
MS/RN CLOSING NOTES PT AWAKE, A/OX4. REMAINS ON ROOM AIR, BREATHING EVEN AND UNLABORED. NO SOB OR PAIN NOTED AT THIS TIME. ARUN MIDLINE PATENT AND INTACT RUNNING IVF ORDERED. PT NOTED WITH X4 EPISODES OF VOMITING, WITH A TOTAL OF 450CC (CLEAR/YELLOW OUTPUT). KEPT PT COMFORTABLE DURING SHIFT. ALL NEEDS MET. BED REMAINS IN LOW/LOCKED POSITION WITH CALL LIGHT IN REACH, SIDE RAILS UPX2. ENDORSED TO DAY SHIFT RN EDEL.
[2017-09-02] MEDS: IV 1/2NS 1000 ML 1,000 ML IV PRN (07:29)
[2017-09-02] MEDS: SUCRALFATE 1 G TABLET PO SCH ×2 (07:29→11:50)
[2017-09-02 08:00] VITALS: BP 117/78
[2017-09-02] MEDS: METFORMIN 500 MG TABLET PO SCH (09:08)
[2017-09-02] MEDS: PANTOPRAZOLE 40 MG VIAL IV SCH (09:08)
[2017-09-02] MEDS: LACTOBACILLUS RHAMNOSUS GG 1 EACH CAP.SPRINK PO SCH (09:08)
[2017-09-02] MEDS: VANCOMYCIN 1.25 GM in IV D5W 500 ML IV SCH (09:08)
[2017-09-02] MEDS: INSULIN GLARGINE, 100 UNIT/ML CARTRIDGE SQ SCH (09:13)
[2017-09-02] MEDS: POTASSIUM CHLORIDE 20 MEQ TAB.PRT.SR PO SCH ×3 (11:51→15:55)
[2017-09-02] MEDS ORDERED: Insulin Glargine,Hum SQ (12:19)
[2017-09-02] MEDS ORDERED: RXVAN XX (12:19)
[2017-09-02] MEDS ORDERED: LEVO500T2 PO (12:19)
[2017-09-02 15:48] VITALS: BP 109/70
[2017-09-02] MEDS ORDERED: POTASSIUM CHLORIDE 20 MEQ TAB.PRT.SR PO ONE (15:54)
[2017-09-02 16:00] VITALS: BP 109/70
--- NOTE | 2017-09-02 16:00 | NUR ---
ms furniture servicer notes Discharge instructions given to patient and Ciera and able to understand instructions. Signed discharge paper and belonging list. No missing item noted. Pictures taken and filed in the patient chart. Picc line in placed for detention antibiotic. Wound dressing done prior discharge. Patient is discharge with [facility] script home health. Pneumonia vaccine not given due to age <65 years old. Flu vaccine already received 02/2017. Patient left the hospital in stable condition accompanied by and RN assigned. No complaint of pain or discomfort noted, nor chest pain. Vital signs checked and recorded. MD and charge nurse aware.
== END 2017-09-02 14:00 | disposition home health service (06) | DRG 853 ==
LOC: ER 10:22 → MEDSG2 15:04
PROVIDERS: ADMIT Internal Medicine; ATTEND Internal Medicine
PROC: 0KBV0ZZ Excision of Right Foot Muscle, Open Approach (ICD-10-PCS; principal; 2017-08-22)
PROC: 0DB58ZX Excision of Esophagus, Via Natural or Artificial Opening Endoscopic, Diagnostic (ICD-10-PCS; 2017-08-28)
PROC: 0DB68ZX Excision of Stomach, Via Natural or Artificial Opening Endoscopic, Diagnostic (ICD-10-PCS; 2017-08-28)
PROC: 05H533Z Insertion of Infusion Device into Right Subclavian Vein, Percutaneous Approach (ICD-10-PCS; 2017-08-29)
PROC: B546ZZA Ultrasonography of Right Subclavian Vein, Guidance (ICD-10-PCS; 2017-08-29)
PROC: 02HV33Z Insertion of Infusion Device into Superior Vena Cava, Percutaneous Approach (ICD-10-PCS; 2017-09-02)
DX: A41.9 Sepsis, unspecified organism (principal); E43 Unspecified severe protein-calorie malnutrition; N17.0 Acute kidney failure with tubular necrosis; K85.90 Acute pancreatitis without necrosis or infection, unspecified; K31.84 Gastroparesis; M00.9 Pyogenic arthritis, unspecified; E11.621 Type 2 diabetes mellitus with foot ulcer; E11.40 Type 2 diabetes mellitus with diabetic neuropathy, unspecified; E87.1 Hypo-osmolality and hyponatremia; L03.115 Cellulitis of right lower limb; M86.8X7 Other osteomyelitis, ankle and foot; L97.513 Non-pressure chronic ulcer of other part of right foot with necrosis of muscle; E11.65 Type 2 diabetes mellitus with hyperglycemia; E11.69 Type 2 diabetes mellitus with other specified complication; E86.0 Dehydration; Z91.19 Patient's noncompliance with other medical treatment and regimen; D63.8 Anemia in other chronic diseases classified elsewhere; Z87.891 Personal history of nicotine dependence; N20.0 Calculus of kidney; E11.43 Type 2 diabetes mellitus with diabetic autonomic (poly)neuropathy; B95.61 Methicillin susceptible Staphylococcus aureus infection as the cause of diseases classified elsewhere; B95.2 Enterococcus as the cause of diseases classified elsewhere; B96.89 Other specified bacterial agents as the cause of diseases classified elsewhere; E87.6 Hypokalemia; K29.60 Other gastritis without bleeding; D72.829 Elevated white blood cell count, unspecified; K21.0 Gastro-esophageal reflux disease with esophagitis; E86.1 Hypovolemia; I10 Essential (primary) hypertension; E78.5 Hyperlipidemia, unspecified
CPT/HCPCS: 36415; 36569; 71045-TC; 73630-TC; 73718-TC; 74018; 80048-TC; 80076-TC; 80202-TC; 81000-TC; 82962-TC; 83605-TC; 83690-TC; 83735-TC; 84100-TC; 84132-TC; 85025-TC; 85652-TC; 85730-TC; 87040-TC; 87070-TC; 87081-TC; 87086-TC; 87186-TC; 88305-TC; 88313-TC; 88342; 93307-TC; 93970-TC; A4606; A6402; A6403; A6407; A9541; C1751; C9113; J1200; J1650; J1815; J2270; J2405; J2543; J2704; J2765; J3370; J3480; J3490; J7030; J7040; J7050; J7060; J8597; Q0162; Q9967; Z7610